=== PATIENT | male | born 1990 | race Two or more races ===

== ENCOUNTER 2021-04-14 22:26 | Inpatient (IN) | payer OTHER ==
[~2021-04-14] VITALS: Ht 154.9 cm; Wt 79.4 kg
--- NOTE | 2021-04-14 22:31 | NUR ---
SE RECIBE PTE MASCULINO ALERTA Y ORIENTADO EN LAS RACHEAL ESFERAS REFIERE POONAM DOLOR ABDOMINAL DESDE HOY AL MEDIO ELAINA.
--- NOTE | 2021-04-15 01:51 | NUR ---
PTE MASCULINO ALERTA Y ORIENTADO EN LAS RACHEAL ESFERAS ES EVALUADO POR . RN ZAVALETA ORIENTA PTE SOBRE ORDENES DE [place] REFIERE COMPRENDER. EXTAREN MUESTRAS DE LABORATORIOS Y CANALIZA VENA BAJO MEDIDAS. ADMINISTRA MEDICMANETOS, BAJO MEDIDAS ASEPTICAS. SE NOTIFICA A RADIOLOGIA PARA CT.
--- NOTE | 2021-04-15 05:14 | NUR ---
SE REALIZA ADMINISTRACION DE ANTIBIOTICO POR ORDEN MEDICA.
--- NOTE | 2021-04-15 06:59 | NUR ---
SE RECIBE PTE. MASCULINO, ALERTA Y ORIENTADO. ACOSTADO EN STEVE BARANDAS ELEVADAS POR SEGURIDAD. SE LE ORIENTA SOBRE CONTINUIDAD DE TRATAMIENTO, REFIERE ENTENDER. RECIBIENDO 0.9NSS. NO REFIERE DOLOR AL MOMENTO. SE MANTIENE BAJO OBSERVACION POR CAMBIOS.
--- NOTE | 2021-04-15 11:55 | NUR ---
PACIENTE EVALUADO POR DR HARINI GAXIOLA QUIEN ORDENA MUESTRAS DE LABORATORIOS RN BAEZA LE SHANNON LAS MUESTRAS UTIILIZANDO MEDIDAS ASEPTICAS.
== END 2021-04-17 15:05 | disposition home or self-care (01) | DRG 699 ==
LOC: ER 22:26 → MEDJ 04-15 12:43 → SURH 04-16 16:03
PROVIDERS: ADMIT Internal Medicine; ATTEND Internal Medicine
PROC: B24BZZZ Ultrasonography of Heart with Aorta (ICD-10-PCS; principal; 2021-04-15)
DX: N28.0 Ischemia and infarction of kidney (principal); N12 Tubulo-interstitial nephritis, not specified as acute or chronic; N17.8 Other acute kidney failure; R10.32 Left lower quadrant pain; Z20.822 Contact with and (suspected) exposure to COVID-19